=== PATIENT | male | born 1990 | race Two or more races ===

== ENCOUNTER 2021-04-28 18:13 | Emergency (ER) | payer MEDICAID ==
[~2021-04-28] VITALS: Ht 167.6 cm; Wt 66.2 kg
[2021-04-28 19:48] VITALS: BP 143/88
--- NOTE | 2021-04-28 20:16 | NUR ---
Patient discharged to home in stable condition. Written and verbal after care instructions given. Patient verbalizes understanding of instruction.
== END 2021-04-28 20:17 | disposition home or self-care (01) ==
LOC: EDBD 18:13 → ER 18:26
DX: F10.129 Alcohol abuse with intoxication, unspecified (principal); Y90.9 Presence of alcohol in blood, level not specified